=== PATIENT | female | born 2000 | race African-American/Black ===

== ENCOUNTER 2019-10-16 13:46 | Outpatient (CLI) | payer OTHER, SELFPAY ==
--- NOTE | 2019-10-16 15:00 | NEURO_ITS ---
Patient Number: [id number] Impression: # Complains of numbness and pain in hands. # No Carpal Tunnel Syndrome or ulnar neuropathy. # Normal needle/EMG exam. # Clinical correlation recommended. Nerve Conduction Studies Anti Sensory Summary Table Stim Site NR Peak (ms) P-T Amp (?V) Site1 Site2 Delta-P (ms) Dist (cm) Blade (m/s) Left Median Anti Sensory (2-3nd Digit) Wrist 2.9 103.4 Wrist 2-3nd Digit 2.9 14.0 48 Wrist 2.7 136.0 Wrist 2-3nd Digit 2.9 14.0 48 Right Median Anti Sensory (2-3nd Digit) Wrist 2.8 80.3 Wrist 2-3nd Digit 2.8 14.0 50 Wrist 2.7 93.6 Wrist 2-3nd Digit 2.8 14.0 50 Left Radial Anti Sensory (Base 1st Digit) Wrist 1.9 45.9 Wrist Base 1st Digit 1.9 0.0 Right Radial Anti Sensory (Base 1st Digit) Wrist 2.7 41.3 Wrist Base 1st Digit 2.7 0.0 Left Ulnar Anti Sensory (5th Digit) Wrist 2.7 128.9 Wrist 5th Digit 2.7 14.0 52 Right Ulnar Anti Sensory (5th Digit) Wrist 2.8 79.2 Wrist 5th Digit 2.8 14.0 50 Motor Summary Table Stim Site NR Onset (ms) O-P Amp (mV) Site1 Site2 Delta-0 (ms) Dist (cm) Blade (m/s) Left Median Motor (Abd Poll Brev) Wrist 3.0 6.3 Elbow Wrist 4.9 31.0 63 Elbow 7.9 5.4 Right Median Motor (Abd Poll Brev) Wrist 3.6 5.1 Elbow Wrist 4.2 27.0 64 Elbow 7.8 4.4 Left Ulnar Motor (Abd Dig Minimi) Wrist 3.0 10.7 A Elbow Wrist 5.0 32.0 64 A Elbow 8.0 9.9 Right Ulnar Motor (Abd Dig Minimi) Wrist 3.0 9.9 A Elbow Wrist 4.8 29.0 60 A Elbow 7.8 9.8 F Wave Studies NR F-Lat (ms) L-R F-Lat (ms) Left Median (Mrkrs) (Abd Poll Brev) 26.34 0.76 Right Median (Mrkrs) (Abd Poll Brev) 25.58 0.76 Left Ulnar (Mrkrs) (Abd Dig Min) 27.79 0.76 Right Ulnar (Mrkrs) (Abd Dig Min) 27.03 0.76 EMG Side Muscle Nerve Root Ins Act Fibs Amp Dur Recrt Comment Right 1stDorInt Ulnar C8-T1 Nml Nml Nml Nml Nml Right Ext Indicis Radial (Post Int) C7-8 Nml Nml Nml Nml Nml Right Ext Digitorum Radial (Post Int) C7-8 Nml Nml Nml Nml Nml Right BrachioRad Radial C5-6 Nml Nml Nml Nml Nml Right PronatorTeres Median C6-7 Nml Nml Nml Nml Nml Right Abd Poll Brev Median C8-T1 Nml Nml Nml Nml Nml Left 1stDorInt Ulnar C8-T1 Nml Nml Nml Nml Nml Left Ext Indicis Radial (Post Int) C7-8 Nml Nml Nml Nml Nml Left Ext Digitorum Radial (Post Int) C7-8 Nml Nml Nml Nml Nml Left BrachioRad Radial C5-6 Nml Nml Nml Nml Nml Left PronatorTeres Median C6-7 Nml Nml Nml Nml Nml Left Abd Poll Brev Median C8-T1 Nml Nml Nml Nml Nml MTDD
== END 2019-10-16 13:47 | disposition home or self-care (01) ==
PROVIDERS: PCP Physician Assistant; Visit Provider Physician Assistant
DX: M79.641 Pain in right hand (principal)
CPT/HCPCS: 95886; 95911

== ENCOUNTER 2020-02-10 11:34 | Outpatient (CLI) | payer OTHER, SELFPAY ==
--- NOTE | ~2020-02-10 | XR_ITS ---
XR wrist RT min 3V DATE: 02/10/2020 11:51 INDICATION: Right wrist pain TECHNIQUE: 4 views COMPARISON: None FINDINGS: No fracture or dislocation, periosteal reaction or bone destruction, significant joint spac e narrowing or chondrocalcinosis or erosive change. IMPRESSION: No significant abnormality Reviewed, dictated and finalized at location B. IMPRESSION: No significant abnormality
== END 2020-02-10 11:35 | disposition home or self-care (01) ==
LOC: ANHIMG 11:37
PROVIDERS: PCP Physician Assistant; Visit Provider Physician Assistant
DX: M25.531 Pain in right wrist (principal)
CPT/HCPCS: 73110

== ENCOUNTER 2021-08-20 07:40 | Outpatient (CLI) | payer OTHER, SELFPAY ==
--- NOTE | ~2021-08-20 | MR_ITS ---
EXAMINATION: MR brain/brain stem wo con DATE: 08/20/2021 08:27 INDICATION: Migraine, unspecified, not intractable, without status migrainosus. TECHNIQUE: Magnetic resonance imaging (MRI) of the brain and brainstem was performed without intraven ous contrast. Sequences included sagittal and axial T1-weighted FSE, axial diffusion-weighted FS EPI, axial T2*-weighted GRE, axial T2-weighted FLAIR Propeller, and axial T2-weighted Propeller. Apparent diffusion coefficient (ADC) maps were created. COMPARISON: Brain MRI 04/05/2017 FINDINGS: The anteroinferior brain is obscured by metal artifact from braces on some sequences. There is no intracranial hemorrhage, acute infarction, or abnormal intracranial mass lesion. The ventricle s are normal in size. The mastoid air cells are normal. IMPRESSION: 1. Normal brain. Reviewed, dictated and finalized at location A. [employer] IMPRESSION: 1. Normal brain.
== END 2021-08-20 07:41 | disposition home or self-care (01) ==
LOC: ANHIMG 07:46
PROVIDERS: PCP Physician Assistant; Visit Provider Physician Assistant
DX: G43.909 Migraine, unspecified, not intractable, without status migrainosus (principal)
CPT/HCPCS: 70551